=== PATIENT | female | born 1985 | race African-American/Black ===

== ENCOUNTER 2021-11-10 11:57 | Outpatient (REF) | payer OTHER, SELFPAY ==
[2021-11-10 13:38] LABS: COVID-19 Test Positive (Negative); IDNOW Serial# 16C4AD1C
== END 2021-11-10 11:58 | disposition home or self-care (01) ==
LOC: HO.LAB 11:57
PROVIDERS: Visit Provider Internal Medicine
DX: Z20.822 Contact with and (suspected) exposure to COVID-19 (principal)
CPT/HCPCS: 36415; 87635; C9803

== ENCOUNTER 2023-06-08 01:20 | Emergency (ER) | payer BC, OTHER, SELFPAY ==
[2023-06-08 01:50] VITALS: BP 136/78; PULSE 71; O2SAT 99
[2023-06-08 02:28] VITALS: BP 127/71; PULSE 58; RESP 16; TEMP 36.2; O2SAT 100; BMI 37.1
[2023-06-08 05:04] VITALS: BP 128/47; PULSE 78; RESP 16; TEMP 36.2; O2SAT 100
[2023-06-08 07:45] VITALS: BP 95/51; PULSE 56; RESP 12; TEMP 36.9; O2SAT 100
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
[2023-06-08] MEDS: Acetaminophen 325 MG TABLET 975 MG PO (09:16)
== END 2023-06-08 09:17 | disposition home or self-care (01) ==
PROVIDERS: Emergency Provider Emergency Medicine
DX: S06.0X0A Concussion without loss of consciousness, initial encounter (principal); R42 Dizziness and giddiness; R51.9 Headache, unspecified; V43.62XA Car passenger injured in collision with other type car in traffic accident, initial encounter; Y93.9 Activity, unspecified; Y92.410 Unspecified street and highway as the place of occurrence of the external cause; Y99.9 Unspecified external cause status
CPT/HCPCS: 99283

== ENCOUNTER 2025-10-04 12:24 | Outpatient (REF) | payer BC, OTHER, SELFPAY ==
--- NOTE | 2025-10-04 12:30 | EMG_ITS ---
Chief complaint: In 2007, she had an EMG at [facility] that showed mild Carpal Tunnel Syndrome. No surgery yet. Continues to have numbness bilateral hands. Reason for referral: Evaluate for Carpal Tunnel Syndrome Referred by: Denzel BERGMAN Procedure done: Bilateral upper extremities NCS Precautions and/or limitations: Patient does not want to do needle EMG today due to poor experience unless EMG. The limb temperature was monitored continuously and remained between 32-36 degrees C during the performance of the NCS. Nerve Conduction Studies Anti Sensory Summary Table ?Stim Site NR Onset (ms) Norm Onset (ms) Peak (ms) Norm Peak (ms) O-P Amp (?V) Norm O-P Amp Site1 Site2 Delta-0 (ms) Dist (cm) Carrington (m/s) Norm Carrington (m/s) Left Median Anti Sensory (2nd Digit) Wrist ? 3.7 4.4 <3.6 3.5 >10 Wrist 2nd Digit 3.7 14.0 38 Right Median Anti Sensory (2nd Digit) Wrist ? 3.7 4.9 <3.6 8.3 >10 Wrist 2nd Digit 3.7 14.0 38 Right Radial Anti Sensory (Thumb) Forearm ? 1.4 2.0 <3.1 26.7 Forearm Thumb 1.4 0.0 Left Ulnar Anti Sensory (5th Digit) Wrist ? 2.3 2.7 <3.7 58.5 >15.0 Wrist 5th Digit 2.3 14.0 61 Right Ulnar Anti Sensory (5th Digit) Wrist ? 2.3 3.3 <3.7 15.3 >15.0 Wrist 5th Digit 2.3 14.0 61 Motor Summary Table ?Stim Site NR Onset (ms) Norm Onset (ms) O-P Amp (mV) Norm O-P Amp iAmp (mV) Amp (1st) (%) Site1 Site2 Delta-0 (ms) Dist (cm) Carrington (m/s) Norm Carrington (m/s) Left Median Motor (Abd Poll Brev) Wrist ? 5.5 <3.9 8.7 >4.5 11.1 100.0 Elbow Wrist 3.3 20.0 61 >45 Elbow ? 8.8 8.7 10.7 100.0 Right Median Motor (Abd Poll Brev) Wrist ? 4.9 <3.9 10.1 >4.5 12.2 100.0 Elbow Wrist 3.7 20.0 54 >45 Elbow ? 8.6 10.4 12.6 103.0 Left Ulnar Motor (Abd Dig Minimi) Wrist ? 2.6 <3.0 8.8 >5 10.4 100.0 B Elbow Wrist 3.1 19.0 61 >45 B Elbow ? 5.7 9.0 11.0 102.3 A Elbow B Elbow 1.5 10.0 67 >45 A Elbow ? 7.2 7.8 9.8 88.6 Right Ulnar Motor (Abd Dig Minimi) Wrist ? 2.7 <3.0 8.9 >5 11.3 100.0 B Elbow Wrist 3.4 0.0 >45 B Elbow ? 6.1 7.9 10.5 88.8 A Elbow B Elbow 1.9 19.0 100 >45 A Elbow ? 8.0 7.2 9.7 80.9 FINDINGS: Bilateral median motor nerves showed prolonged distal latency, normal amplitude and normal conduction velocity. Bilateral median sensory nerves showed small amplitude and prolonged peak latency. All other nerves tested were within normal. IMPRESSION: 1. This is an abnormal nerve conduction study. 2. There is electrodiagnostic evidence for bilateral moderate-severe median neuropathy at the wrist, consistent with carpal tunnel syndrome. 3. There is no electrodiagnostic evidence for ulnar neuropathy. Thank you for your kind referral. Eloise Almaguer MD, JOSE J Board Certified, [place] Board of Physical Medicine and Rehabilitation (ABPMR) Board Certified, [place] Board of Electrodiagnostic Medicine (ABEM) CODIN 5 911 MTDD
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
== END 2025-10-04 12:25 | disposition home or self-care (01) ==
LOC: HO.NEURO 12:24
DX: R20.0 Anesthesia of skin (principal); R20.2 Paresthesia of skin
CPT/HCPCS: 95911

== ENCOUNTER → 2025-10-04 12:30 | Outpatient (BNV) | payer BC, SELFPAY | PROVIDERS: Visit Provider Physical Medicine & Rehabilitation | DX: G56.03 Carpal tunnel syndrome, bilateral upper limbs (principal) | CPT/HCPCS: 95911 ==

== ENCOUNTER 2025-10-08 09:08 | Outpatient (AMB) | payer BC, SELFPAY ==
[2025-10-08 09:14] VITALS: BP 108/72; PULSE 81; RESP 18; TEMP 36.1; O2SAT 99; BMI 43.8
--- NOTE | 2025-10-08 09:14 | A.OFFPC_ITS ---
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 Accompanied by: Self / Same As Patient Allergies No Known Allergies Allergy (Verified 10/08/25 09:19) Medication List - Last Reconciled 10/08/25 by Karen Escobar MD ibuprofen 600 mg PO Q6H PRN lidocaine 4% (AsperFlex (lidocaine)) 1 appl topical BID PRN Tobacco use date assessed: 10/08/25 Dental Screening Dental Screen Date: 10/08/25 Did you have a dental visit in the last 12 months?: No Did you have a dental problem in the last 6 months where you did not have access to dental care?: No Was dental information given to patient?: No HPI HPI Comments History of Present Illness Details The patient is a 40-year-old female presenting with sciatic nerve pain. The pain began over a month ago and was diagnosed as sciatica at the [facility] emergency room. The pain originates at the base of her spine and radiates down her right leg down to her foot, and is described as a stabbing sensation. She reports associated intermittent tingling in her right foot but denies urinary or fecal incontinence. For pain management, she uses ibuprofen. She attended one physical therapy session and performs the recommended exercises at home but has been unable to continue formal therapy due to financial constraints. The patient works full- time at an [employer], a job that involves carrying, pushing, and pulling. She states she can tolerate lifting or carrying about 20 pounds. Past medical history is significant for asthma, for which she uses an albuterol inhaler as needed. She notes she has been without a primary care physician for over a year and a half. [facility] Medical History (Updated 10/08/25 @ 14:24 by Karen Escobar MD) Asthma Sciatica Family History Other Diabetes Glaucoma Hypertension Social History (Updated 10/08/25 @ 09:21 by Ellen Metcalf MA) Alcohol intake: current Patient Tobacco Use Status: Never used Tobacco e-Cigarette/Vaping Use: Never Used Substance Use Type: Marijuana Current occupational status: employed Current occupation: [employer] Cognitive needs: No Hearing needs: No Vision needs: Yes Questionnaire PHQ-9 Over the last 2 weeks, how often have you been bothered by any of the following problems? 1. Little interest or pleasure in doing things: several days 2. Feeling down, depressed, or hopeless: several days 3. Trouble falling or staying asleep, or sleeping too much: several days 4. Feeling tired or having little energy: not at all 5. Poor appetite or overeating: not at all 6. Feeling bad about yourself - or that you are a failure or have let yourself or your family down: several days 7. Trouble concentrating on things, such as reading the newspaper or watching television: not at all 8. Moving or speaking so slowly that other people could have noticed. Or the opposite - being so fidgety or restless that you have been moving around a lot more than usual: not at all 9. Thoughts that you would be better off or of hurting yourself in some way: not at all Total score: 4 Source: Developed by Drs. Vitaly Rodrigez, Isabel Weston, Nito Pan and colleagues, with an educational lincoln from [employer]. Thrive Questionnaire Date Thrive assessed: 10/08/25 I am a: Patient What is your living situation today?: I have a place to live, but I am worried about losing it in the future Within the past 12 months, did the food you bought not last and you didn't have the money to get more?: Sometimes True Within the past 12 months, did you worry whether your food would run out before you got money to buy more?: Often true Do you have trouble paying for medicines?: No Do you have trouble getting transportation to medical appointments?: No Do you have trouble paying your heating and electricity bill?: No Do you have trouble taking care of your child, family member or friend?: No Do you have trouble with day-to-day activities such as bathing, preparing meals, shopping, managing finances, etc.?: No Are you currently unemployed and looking for a job?: No Are you interested in more education?: No Please select the resources that you would like help with: Housing/Senior Care and Food Currently or been in a relationship where the following occur: No concerns reported THRIVE Score: 3 AUDIT C Alcohol Use Questionnaire (AUDIT-C) 2. How many drinks containing alcohol do you have on a typical day when you are drinking?: 1 or 2 Total Score: 0 JOSEMANUEL-7 AMB Questionnaire JOSEMANUEL-7 Date JOSEMANUEL - 7 assessed: 10/08/25 Feeling nervous, anxious, or on edge: 1 = Several days Not being able to stop or control worryin = Several days Worrying too much about different things: 1 = Several days Trouble relaxin = Several days Being so restless that it is hard to sit still: 0 = Not at all Becoming easily annoyed or irritable: 1 = Several days Feeling afraid as if something awful might happen: 1 = Several days Total JOSEMANUEL-7 score (0-4 normal; 5-9 mild; 10-14 moderate; 15-21 severe): 6 Source: Developed by Drs. Vitaly Rodrigez, Isabel Weston, Nito Pan and colleagues, with an educational lincoln from [employer]. Physical exam (Primary Care) Vital Signs: Last Vital Signs Temp 96.9 F 10/08/25 09:14 Pulse 81 10/08/25 09:14 Resp 18 10/08/25 09:14 BP 108/72 10/08/25 09:14 Pulse Ox 99 10/08/25 09:14 Oxygen Delivery Method Room Air 10/08/25 09:14 General: Well-appearing, alert, oriented ?3, in no acute distress. Cardiovascular: RRR, S1-S2 appreciated, no murmurs, rubs or gallops. Respiratory: Lungs clear to auscultation bilaterally, no wheezes, rales or rhonchi. Abdomen: Soft, nontender, nondistended. Normoactive bowel sounds. Back: Tenderness to palpation of bilateral paraspinal lumbar muscles. Positive right straight leg raise test. Sensation and strength intact in bilateral lower extremities. BMI result Body Mass Index 43.8 Tobacco/Smoking Status: Tobacco use Status Tobacco use date assessed 10/08/25 10/08/25 09:26 Patient Tobacco Use Status Never used Tobacco 10/08/25 09:26 e-Cigarette/Vaping Use Never Used 10/08/25 09:26 PHQ-9: PHQ-9 Score PHQ-9: Total score 4 10/08/25 15:16 Thrive Assessment: Date of Thrive Assessment Date Thrive assessed 10/08/25 10/08/25 09:26 Currently or been in a relationship where the following occur: No concerns reported Coding Level of Care Code New Pt Level 4 (74066) Diagnoses Sciatica of right side M54.31 Laterality: right Right-sided low back pain with right-sided sciatica, unspecified chronicity M54.41 Back pain laterality: right Back pain location: low back pain Chronicity: unspecified Sciatica laterality: sciatica of right side Sciatica presence: with sciatica Assessment & Plan Assessment & Plan (1) Sciatica: Code(s): M54.30 - Sciatica, unspecified side Category: Medical Qualifiers: Laterality: right Qualified Code(s): M54.31 - Sciatica, right side Plan: The patient is a 40-year-old female with right-sided sciatica, ongoing for over a month. The pain originates in her lumbar back and radiates down the right leg. Her symptoms are exacerbated by her physically demanding job. Physical exam reveals lumbar tenderness and positive straight leg raise test on the right. johanne l obtain lumbar Xray. For pain management, she will continue taking ibuprofen as needed, and a prescription for lidocaine cream will be sent to apply twice a day as needed. She is encouraged to resume physical therapy when she is able, when financial constraints improve. The patient works at an [employer], a job that involves carrying, pushing, and pulling. Patient is requesting completion of paperwork for her employer to be able to return to work. Upon my assessment, patient may return to work with restrictions. (2) Back pain: Code(s): M54.9 - Dorsalgia, unspecified Category: Medical Qualifiers: Back pain laterality: right Back pain location: low back pain Chronicity: unspecified Sciatica laterality: sciatica of right side Sciatica presence: with sciatica Qualified Code(s): M54.41 - Lumbago with sciatica, right side Plan: as above Orders: Orders XR lumbar spine 2-3V Today M54.50 - Low back pain, unspecified Medications: New lidocaine 4% (AsperFlex (lidocaine)) 1 appl topical BID PRN 15 grams 0RF pain
== END 2025-10-08 10:15 | disposition home or self-care (01) ==
LOC: HO.HMCH 09:09
PROVIDERS: Visit Provider Student in an Organized Health Care Education/Training Program
DX: M54.31 Sciatica, right side (principal); M54.41 Lumbago with sciatica, right side

== ENCOUNTER 2025-11-07 14:50 | Outpatient (AMB) | payer BC, SELFPAY ==
--- NOTE | 2025-11-07 14:52 | MHC.OFFVIS ---
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 Patient reports that she has had progressively worsening numbness, tingling and pain ongoing since about 2021. Both of her hands feel about the same, one is not worse than the other. No previous treatments. IMPRESSION 10/04/25: 1. This is an abnormal nerve conduction study. 2. There is electrodiagnostic evidence for bilateral moderate-severe median neuropathy at the wrist, consistent with carpal tunnel syndrome. 3. There is no electrodiagnostic evidence for ulnar neuropathy. 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 Patient reports that she has had progressively worsening numbness, tingling and pain ongoing since about 2021. This condition was 1st diagnosed in 2007 at [facility] Both of her hands feel about the same, one is not worse than the other. No previous treatments. Patient would like to start with left side for any surgical intervention. IMPRESSION 10/04/25: 1. This is an abnormal nerve conduction study. 2. There is electrodiagnostic evidence for bilateral moderate-severe median neuropathy at the wrist, consistent with carpal tunnel syndrome. 3. There is no electrodiagnostic evidence for ulnar neuropathy. [facility] Medical History (Updated 11/07/25 @ 16:32 by PACHECO Hernandez) Asthma Sciatica Family History Other Diabetes Glaucoma Hypertension Social History (Updated 10/08/25 @ 09:21 by Ellen Metcalf MA) Alcohol intake: current Patient Tobacco Use Status: Never used Tobacco e-Cigarette/Vaping Use: Never Used Substance Use Type: Marijuana Current occupational status: employed Current occupation: [employer] Cognitive needs: No Hearing needs: No Vision needs: Yes Physical Exam Vital Signs: BMI result Body Mass Index 39.5 Extrem Other: Neuro: Normal sensation of the tips of all digits of bilateral hands in the office today No thenar or intrinsic wasting. Good APB muscle firing and good finger cross. Vascular: Capillary refill brisk. ROM: Patient can make a fist and extend all their digits. Skin: No lacerations or abrasions noted. General: No ecchymosis. No erythema or evidence of infection. Assessment & Plan Assessment & Plan (1) Bilateral carpal tunnel syndrome: Code(s): G56.03 - Carpal tunnel syndrome, bilateral upper limbs Category: Medical Plan 1. Left carpal tunnel syndrome Symptoms intermittent, daily, worse at night I educated the patient about the condition. I discussed both operative and nonoperative treatment options. The patient would like to proceed with surgery. The risks and benefits of operative treatment were discussed with the patient and the patient wishes to proceed with surgery. These risks include, but are not limited to, risk of damage to blood vessels, nerves, tendons, infection, recurrence, incomplete relief of preoperative symptoms, persistent pain, possible need for further surgery, and the risks associated with regional blocks and/or anesthesia. Plan is to take the patient to the operating room at some point in the next few weeks for the following procedures: 1. Left carpal tunnel release under local All of the preoperative paperwork including the consent was discussed today. All of the patient's questions were answered in the clinic today. The patient understands that they will be in contact with our surgical instrument maker to discuss scheduling their procedure. Patient denies diabetes, blood thinners, asthma, heart issues, lung issues, kidney issues, or current smoking. 2. Right carpal tunnel syndrome Symptoms intermittent, daily, worse at night Patient would like to proceed with operative intervention of the left prior to any intervention of the right Patient is educated that if all is recovering well at her postop visit, we can get the right side signed up for surgery at that time Patient understands this and is amenable to this plan Follow-up for scheduled surgery, sooner with any acute concerns Coding Level of Care Code New Pt Level 4 (45707) Diagnoses Bilateral carpal tunnel syndrome G56.03
[2025-11-07 14:56] VITALS: BMI 39.5
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
== END 2025-11-07 15:23 | disposition home or self-care (01) ==
LOC: HO.HOS 14:51
DX: G56.03 Carpal tunnel syndrome, bilateral upper limbs (principal)
CPT/HCPCS: 99204